=== PATIENT | male | born 1985 | race Hispanic/Latino ===

== ENCOUNTER 2021-11-11 11:01 | Emergency (ER) | payer SELFPAY ==
[~2021-11-11] VITALS: Ht 172.7 cm; Wt 90.0 kg
[2021-11-11 11:19] VITALS: BP 216/135
[2021-11-11 11:21] VITALS: BP 240/139
[2021-11-11 11:31] VITALS: BP 230/133
[2021-11-11] MEDS ORDERED: HYDROCO/APAP1 TA9 PO (14:24)
[2021-11-11] MEDS ORDERED: MOTRIN800 MG PO (14:24)
== END 2021-11-11 14:50 | disposition home or self-care (01) | DRG 563 ==
LOC: ED 11:01
DX: S93.402A Sprain of unspecified ligament of left ankle, initial encounter (principal); S93.602A Unspecified sprain of left foot, initial encounter; X50.0XXA Overexertion from strenuous movement or load, initial encounter; Y93.89 Activity, other specified; Y92.89 Other specified places as the place of occurrence of the external cause

== ENCOUNTER 2021-11-19 11:26 | Emergency (ER) | payer SELFPAY ==
[~2021-11-19] VITALS: Ht 172.7 cm; Wt 86.0 kg
[2021-11-19] VITALS (21 sets, daily range): BP systolic 163–243; BP diastolic 107–148
[~2021-11-19 11:26] MED LIST: HYDROCO/APAP1 TA9 PO; MOTRIN800 MG PO
[2021-11-19 13:45] LABS: HEMATOCRIT 48.1 % (39.0-50.0); HEMOGLOBIN 16.6 g/dl (14.0-18.0); IMMATURE GRANULOCYTES 0.5 % (0.0-5.0); MEAN CELL VOLUME 89.7 fL CALC (80.0-100.0); MEAN CORPUSCULAR HGB CONC 34.5 g/dL CAL (32.0-36.0); NEUT# 5.42 thou/uL (1.82-7.42); RED BLOOD COUNT 5.36 mill/uL (4.70-6.10); RED CELL DISTRI WIDTH 12.3 % (11.5-15.5)
[2021-11-19 14:01] LABS: ANION GAP 10 (6-22 (CALC)); BUN 20 mg/dL (9-20); BUN/CREATININE RATIO 23 (12-20 (CALC)); CARBON DIOXIDE 28 mmol/l (22-30); CHLORIDE 104 mmol/l (95-108); CREATININE 0.9 mg/dL (0.7-1.3); GFR > 60 ML/MIN (>=60 (CALC)); GFR FOR AFR.AMER. > 60 ML/MIN (>=60 (CALC)); POTASSIUM 3.8 mmol/l (3.5-5.1); SODIUM 139 mmol/l (137-146)
[2021-11-19] MEDS ORDERED: PREDNISONE20 MG PO (16:52)
[2021-11-19] MEDS ORDERED: LISINOPRIL10 MG PO (16:52)
[2021-11-19] MEDS ORDERED: AMLODIPINE BESYL5 MG PO (16:52)
[2021-11-19] MEDS ORDERED: FLEXERIL5 M1 PO (16:55)
== END 2021-11-19 17:10 | disposition home or self-care (01) | DRG 552 ==
LOC: ED 11:26
PROVIDERS: Nurse Practitioner
DX: M54.16 Radiculopathy, lumbar region (principal); I10 Essential (primary) hypertension